=== PATIENT | male | born 1970 | race Caucasian/White ===

== ENCOUNTER 2017-12-22 14:29 | Emergency (ER) | payer SELFPAY ==
[2017-12-22 14:35] VITALS: BP 133/77; PULSE 64; TEMP 97.9; O2SAT 98
--- NOTE | 2017-12-22 15:05 | C.PDOC ---
History Of Present Illness 47 y/o male presents to the ED complaining of decreased hearing in the left ear for the past 3-4 weeks. States he has been putting oil on the ear with no relief. Denies any associated fever or discharge. States he uses q-tips to clean both ears. Time Seen by Provider: 12/22/17 14:41 Chief Complaint (Nursing): ENT Problem History Per: Patient History/Exam Limitations: None Onset/Duration Of Symptoms: Days (x 3 weeks) Current Symptoms Are (Timing): Still Present Past Medical History Reviewed: Historical Data, Nursing Documentation, Vital Signs Vital Signs: Last Vital Signs Temp 97.9 F 12/22/17 14:31 Pulse 64 12/22/17 14:31 Resp 18 12/22/17 15:20 BP 133/77 12/22/17 14:31 Pulse Ox 98 12/22/17 16:06 - Medical History PMH: Gastritis, HTN, Hypercholesterolemia Surgical History: No Surg Hx Family History: States: No Known Family Hx - Social History Hx Tobacco Use: No Hx Alcohol Use: No Hx Substance Use: No - Immunization History Hx Tetanus Toxoid Vaccination: No Hx Influenza Vaccination: Yes Hx Pneumococcal Vaccination: No Review Of Systems Except As Marked, All Systems Reviewed And Found Negative. Constitutional: Negative for: Fever, Chills ENT: Positive for: Other (decreased hearing from left ear). Negative for: Ear Pain Physical Exam - Physical Exam Appears: Well, Non-toxic, No Acute Distress Skin: Normal Color, Warm, Dry Head: Atraumatic, Normacephalic Eye(s): bilateral: Normal Inspection, EOMI Ear(s): Bilateral: TM Obscured By Wax (bilateral cerumen impaction) Nose: Normal Oral Mucosa: Moist Throat: Normal, No Erythema, No Exudate Neck: Normal ROM, Supple Chest: Symmetrical Cardiovascular: Rhythm Regular Respiratory: Normal Breath Sounds, No Accessory Muscle Use, Other (speaking in full sentences) Neurological/Psych: Oriented x3, Normal Speech, No Other (focal deficits) ED Course And Treatment O2 Sat by Pulse Oximetry: 98 (RA) Pulse Ox Interpretation: Normal Progress Note: The left ear was irrigated with diluted hydrogen peroxide, some wax removed with mild improvement in symptoms. Mild erythema of the canal noted. Patient instructed to f/u with ENT. Berry Grower was used to ensure understanding. Disposition Counseled Patient/Family Regarding: Diagnosis, Need For Followup, Rx Given - Disposition Referrals: [facility] [Outside] Lexx Oconnell MD [Staff Provider] - Disposition: HOME/ ROUTINE Disposition Time: 15:02 Condition: STABLE Additional Instructions: Vaya a stein mdico o la clnica en 1-3 peralta sin falta, para mas evaluacin. [place] los medicamentos fletcher indicado. Volver a la anthony de emergencia en cualquier momento si los sntomas persisten o empeoran. Prescriptions: Carbamide Peroxide [Debrox] 5 drop OT BID #1 bottle Neomycin/Polymyxin/Hydrocortis [Cortisporin Otic Susp] 4 drop OT QID #1 bottle Instructions: Ear Wax Impaction (DC) Forms: [employer] (Citizen [place]) Print Language: UPPER SORBIAN - POA Present On Arrival: None - Clinical Impression Clinical Impression: Cerumen impaction - PA / [employer] / Resident Statement MD/DO has reviewed & agrees with the documentation as recorded. - Scribe Statement The provider has reviewed the documentation as recorded by the Scribe (Jesusita Santos) All medical record entries made by the Scribe were at my direction and personally dictated by me. I have reviewed the chart and agree that the record accurately reflects my personal performance of the history, physical exam, medical decision making, and the department course for this patient. I have also personally directed, reviewed, and agree with the discharge instructions and disposition.
[2017-12-22 15:21] VITALS: RESP 18
== END 2017-12-22 15:21 | disposition home or self-care (01) ==
LOC: C.ER 14:29
DX: H61.22 Impacted cerumen, left ear (principal)